=== PATIENT | male | born 1955 | race Caucasian/White ===

== ENCOUNTER → 2021-05-27 07:26 | Outpatient (CLI) | payer MEDICARE, SELFPAY ==
--- NOTE | ~2021-05-27 | XR_ITS ---
XR knee LT 3V 05/27/2021 08:04 Indication: Left knee pain Procedure: 3 views left knee Comparison: No prior studies for comparison. Findings: There is severe osteoarthritis of the left knee. No fracture, subluxation or dislocation. S mall joint effusion. No foreign bodies. Impression: 1: Severe osteoarthritis of the left knee, most advanced medially. Reviewed, dictated and finalized at location B. Impression: 1: Severe osteoarthritis of the left knee, most advanced medially.
== END ==
PROVIDERS: Visit Provider Orthopaedic Surgery
DX: M25.562 Pain in left knee (principal); M17.12 Unilateral primary osteoarthritis, left knee
CPT/HCPCS: 73562

== ENCOUNTER 2021-08-05 07:40 | Outpatient (CLI) | payer MEDICARE, SELFPAY ==
--- NOTE | 2021-08-05 08:37 | ECG_ITS ---
Measurements Intervals [place] Rate: 62 P: 31 DC: 181 QRS: -15 QRSD: 102 T: 42 QT: 403 QTc: 411 Interpretive Statements SINUS RHYTHM BASELINE ARTIFACT- I, II, III, AVR, AVL, AVF, V4-V6 NORMAL ECG Electronically Signed On 08-05-2021 9:58:21 WAITRESS by Hadley Hassan D.O.
[2021-08-05 09:23] LABS: Basophils Percent Auto 0.7 % (0.2-1.2); Eosinophils Absolute Auto 0.1 K/mm3 (0-0.3); Eosinophils Percent Auto 1.8 % (0-4.4); Hematocrit 40.4 % (42.0-52.0); Hemoglobin 13.5 g/dL (14.0-18.0); Immature Granulocyte Absolute 0.02 K/mm3 (0.00-0.031); Immature Granulocyte Percent A 0.4 % (0-0.5); Lymphocytes Absolute Auto 1.33 K/mm3 (0.9-3.2); Lymphocytes Percent Auto 24.4 % (18.3-44.2); Mean Corpuscular HGB Conc 33.4 g/dl (32-36); Mean Corpuscular Hemoglobin 30.1 pg (26-34); Mean Platelet Volume 9.4 fl (7.4-10.4); Monocytes Absolute Auto 0.6 K/mm3 (0.1-0.6); Monocytes Percent Auto 10.8 % (2.6-8.5); Neutrophils Absolute Auto 3.4 K/mm3 (1.3-6.7); Neutrophils Percent Auto 61.9 % (45.5-73.1); Platelet Count Result 226 k/mm3 (150-375); Red Blood Count 4.49 M/mm3 (4.6-6.20); Red Cell Distribution Width 13.2 % (11.5-14.5); White Blood Count 5.4 K/mm3 (4.5-10.0)
[2021-08-05 09:26] LABS: Urine Cotinine NEGATIVE
[2021-08-05 09:36] LABS: Estimated Glomerular Filt Rate > 60; Glucose 98 mg/dL (65-110)
[2021-08-05 10:14] LABS: Hemoglobin A1C 5.4 % (<5.7)
== END 2021-08-05 07:41 | disposition home or self-care (01) ==
LOC: ANHSURGERY 07:44
PROVIDERS: PCP Nurse Practitioner Adult Health; Visit Provider Orthopaedic Surgery
DX: Z01.818 Encounter for other preprocedural examination (principal); M17.12 Unilateral primary osteoarthritis, left knee; Z51.81 Encounter for therapeutic drug level monitoring; Z79.899 Other long term (current) drug therapy
CPT/HCPCS: 80307; 82040; 82565; 82947; 83036; 85025; 86850; 86900; 86901; 87081; 93005

== ENCOUNTER 2021-08-17 02:18 | Day surgery (SDC) | payer MEDICARE, SELFPAY ==
[2021-08-05 07:53] VITALS: BMI 30.5
--- NOTE | 2021-08-05 08:09 | PC.NURSE ---
Report to the Outpatient Waiting Room, entrance under the green pavilion located off [facility], at time __0900 on date _08/17/21 . OR Time: __11100 . - You and your visitor will be asked a series of questions to screen for COVID 19 for your protection. - A mask is required within the hospital. - Only one visitor is allowed at this time. Patient visitors will be guided where to wait when not with patient. Preoperative COVID Testing Requirements: No COVID Test needed if: (proof is required; if not received patient will have Rapid Test prior to entry) - Patient has received COVID Vaccine at least 14 days prior to procedure date or - Patient has positive COVID test result within last 90 days of surgery date. COVID Test needed if above criteria is not met If not COVID vaccinated a COVID test must be conducted within 72 hours of surgery and patient is asked to isolate self from time of testing until procedure. You will go to the [facility] for your COVID testing. The [facility] site is located at the corner of [address] [facility]. You will only be called if COVID results are positive and your surgeon may reschedule your elective surgery date. Patients may have clear liquids (water, carbonated beverages, clear teas, apple juice) until 3 hours prior to surgery with a maximum of 20 ounces. - No food from midnight until time of surgery - Infants may have breast milk until 4 hours before surgery, infant formula 6 hours prior to surgery. - Children will be allowed to drink immediately following surgery. If applicable, please bring a bottle or sippy cup to assist with drinking. Juice, water, soda, and popsicles are readily available. For infants on formula, please bring formula the day of surgery. Pacifiers are allowed. Take the following medications with a SIP of water the morning of surgery: ___NONE Medications to discontinue per physician ___MULTI VITAMIN 3 DAYS PRE OP Date to take last dose 08/13/21 Please no make-up, nail northern ir[place], hairspray, perfume, deodorant, or body powder the day of surgery. No jewelry (including any body piercings) or valuables the day of surgery, leave them at home. Please take a shower or bath the night before, or the morning of, surgery with an antibacterial soap. Wear comfortable, loose fitting clothing. Children are encouraged to wear pajamas. - Jewelry must be removed prior to entering the operating room. Rings and piercings that are not removed may be cut off. - The hospital will not accept responsibility for valuables. - Please leave all valuables, including medications, at home the day of surgery. If you are going home after surgery, a licensed electric pile driver operator must drive you home. - NO public transportation without another adult. - We recommend that an adult stay with you for 24 hours following discharge. - We also recommend that you do not drive, make important decision, drink alcoholic beverages, or take any drugs that were not prescribed by your health care provider for at least 24 hours after your discharge time. For Pediatric surgeries, we recommend two adults accompany the child home (only one inside the building at this time). Follow any additional instructions given to you from your surgeon. VERBAL instructions given to __PATIENT and asked if any additional questions and then verbalized understanding. Patient advised to call surgeon office or pre surgery nurse liaison [phone] if any additional questions.
[2021-08-05 08:28] VITALS: BP 152/92; PULSE 63; RESP 16; TEMP 36.8; O2SAT 98
--- NOTE | 2021-08-14 12:04 | P.PNAN_ITS ---
Anes - Initial Pre Proc Eval Procedure: Operation Date: 08/17/21 07:30 Proposed Procedures p Left Total Knee Arthroplasty - Law Stone MD Date/Time: 08/17/21 06:30 Surgeon: Law Stone MD Pre Op Diagnosis: Osteoarthritis Left Knee Patient Data Age: 65 Gender: M Height: 1.88 m Weight: 108 kg Last Vital Signs Temp 36.8 C 08/05/21 08:28 Pulse 63 08/05/21 08:28 Resp 16 08/05/21 08:28 BP 152/92 H 08/05/21 08:28 Pulse Ox 98 08/05/21 08:28 Allergies Allergy/AdvReac Type Severity Reaction Status Date / Time No Known Allergies Allergy Verified 08/06/21 09:53 Home Medications Medication Instructions Recorded Confirmed Type lisinopril 10 mg tablet 10 mg PO HS 05/27/21 08/06/21 History rivaroxaban 10 mg tablet 10 mg PO DAILY #14 tablet 08/06/21 Rx Patient hx anesthesia problems: none Family hx anesthesia problems: none Results Review: All pre-operative results and documents have been reviewed as pa rt of the pre-operative evaluation. [facility] Past Medical History Medical History (Updated 08/14/21 @ 12:05 by Arnold Joseph DO) HTN (hypertension) Malignant neoplasm of prostate Osteoarthritis of left knee Family History Family History Sibling Lymphoma Malignant neoplasm of prostate Social History Social History Smoking packs per day: 1 Smoking cigarettes per day: 20.0 Years smoked: 1 Smoking pack-years: 1.00 Smoking status: Former smoker Tobacco type: cigarettes Additional smoking assessment comments: smoked lightly for less than one year in his younger years Alcohol intake: never Living arrangements: with family Gender identity (if verbalized by the patient): Male Spiritual care concerns: No Anes - Eval Final PreProcedure Day of Procedure 08/14/21 12:04 Patient weight: obese Heart: regular rate and rhythm Lungs: clear to auscultation and normal air movement Airway: Mallampati scale class II Neurological: alert and oriented Last oral intake: >/= 8 hours ASA classification: III Emergent: no Anesthetic plan: proceed Anesthesia type and monitoring: regional spinal and standard monitoring Results Review: All pre-operative results and documents have been reviewed as part of the pre-operative evaluation. Informed Consent: The patient's anesthetic plan and its attendant risks and benefits were discussed with the patient/family/POA. Questions were solicited and answers provided to the satisfaction of the patient/family/POA.
--- NOTE | 2021-08-14 12:06 | WPDANESPNB ---
Anes - Peripheral Nerve Block Date/Time: 08/17/21 - 06:30 I have discussed with the patient/family/POA the placement of a peripheral nerve block for post-operative pain management, including associated risks, benefits, complications, and side effects. Alternative methods of post-operative analgesia were detailed. Questions were solicited and answers provided to the satisfaction of the patient/family/POA. Time-Out: A pre-procedural Time-Out was completed immediately before starting the procedure and confirmed: Patient Identification, Site, Procedure, Patient Position and the Availability of Requisite Equipment. Clinical Indications: Acute post-operative pain management requested by the operative surgeon. Nerve Block Insertion Note Anes-nerve block: adductor canal left Patient position: supine Skin prep: chlorhexidine Needle: 22 gauge, stimulating, insulated echogenic needle. Needle length: 80 mm Technique: ultrasound Injectate: bupivacaine 0.5% with epi 5 mcg/ml (30cc - no epi) Observations: tolerated well Complications: none Procedure start time:: 719 Procedure end time:: 723
[2021-08-17] VITALS (14 sets, daily range): BP systolic 122–182; BP diastolic 68–98; PULSE 61–77; RESP 10–18; TEMP 36.2–36.8; O2SAT 93–100; BMI 29.6
--- NOTE | ~2021-08-17 | XR_ITS ---
EXAMINATION: XR knee LT 2V DATE: 08/17/2021 10:19 INDICATION: Left knee arthroplasty. Postop. TECHNIQUE: 2 views of left knee were obtained. COMPARISON: Left knee radiographs 05/27/2021 FINDINGS: There is a total left knee arthroplasty with patellar resurfacing in near-anatomic alignmen t. No fracture. There is gas in the knee joint and soft tissues, consistent with recent surgery. IMPRESSION: 1. Total left knee arthroplasty in near-anatomic alignment. Reviewed, dictated and finalized at location B. ERECTOR
[2021-08-17] MEDS: LACTATED RINGERS 1,000 ML 30 ML IV CONT ×3 (06:30→11:20)
[2021-08-17] MEDS: ACETAMINOPHEN 500 MG TABLET 1000 MG PO ×3 (06:32→22:14)
[2021-08-17] MEDS: TRANEXAMIC ACID 1,000MG/ISO100 1,000 MG/100 ML BAG 200 MG IVPB (06:44)
--- NOTE | 2021-08-17 07:04 | WPDHPUPDATE1 ---
History and Physical Update Update Date/Time: 08/17/21 07:04 History and Physical has been reviewed, including an updated exam of the patient. There are NO changes in the patient's condition. Risks, benefits, and alternatives have been discussed and questions answered. Patient agrees to proceed with procedure.
[2021-08-17] MEDS: ceFAZolin 2 GM/D5W 50 ML 2 GM/50 ML BAG IVPB ×3 (07:27→23:19)
[2021-08-17] MEDS: GENTAMICIN BONE CEMENT REFOBACIN 1 EACH TOPICAL (08:17)
[2021-08-17] MEDS: ceFAZolin SODIUM 1 GM VIAL IV PUSH (09:13)
--- NOTE | 2021-08-17 10:05 | P.OP_ITS ---
Procedure Note - Detailed Date of Procedure 08/17/21 Pre-op Diagnosis Osteoarthritis Left Knee Post-op Diagnosis same Procedure Performed Left total knee replacement Surgeon Law Stone MD Freight Elevator Erector Heena Valente Anesthesia general and regional Description of Procedure The patient was identified and proper site identified. In the preop holding area the anesthesia team performed a left leg sub sartorial block after which the patient was taken to the operating room and transferred to the OR table positioning supine taking care to pad the torso and extremities. After general anesthetic induction and intubation a nonsterile tourniquet was placed high on the left thigh. The left lower extremity was prepped and draped in the usual sterile fashion. The extremity was exsanguinated and with the knee flexed tourniquet was inflated to 300 mmHg remaining up for approximately 65 minutes. An anterior midline incision was made and a modified medial parapatellar approach was used. Infra and suprapatellar fat pads were excised. Patella was resected leaving 16 mm thickness and prepared for the size 37 standard round three peg component. Using the intramedullary guide the distal femur was cut in the proper orientation for the size 75 femoral component. Using the extram edullary guide the tibia was cut perpendicular to the long axis protecting collateral ligaments and popliteal structures. It was sized to a 83. Flexion and extension gaps were balanced. Trial reduction was undertaken and the weight-bearing line was noted to passed through the center of the joint. Proximal tibia was drilled and punched in the proper orientation for the real component. Trial components were removed. The bone surfaces were washed with pulsatile lavage and dried. The real components were cemented simultaneously. The knee was held in extension and the patella held clamped until the cement had cured. Excess cement was removed from the joint. After trialing it was determined that the 16 mm insert gave full range of motion from 0-120 degrees of flexion and the patella tracked in the femoral groove with no lift-off. After final lavage the joint the real 16 E poly insert was placed and secured with a locking bar. A Betadine and saline wash was placed into the wound and allowed to sit for approximately 3 minutes and then evacuated. Periarticular tissues were infiltrated with 60 cc of the arthroplasty solution. Surgicel powder was used both deep and superficial to the fascia during the closure. The extensor mechanism was repaired with #2 Vicryl suture and 0 looped PDS suture. Subcu was reapproximated with 3-0 Monocryl and 2-0 Quill with tissue adhesive for the skin. A sterile dressing was applied. He tolerated the procedure well, was awakened and extubated, transferred to the bed and was taken to recovery area in stable condition. There were no known intraoperative complications. Perioperative antibiotics were administered. Estimated Blood Loss 100 Tourniquet Time 65 Drains No Packing No Pathology none sent Complications No immediate complications Condition stable Disposition PACU
[2021-08-17] MEDS: fentaNYL CITRATE INJ (*CRX) 100 MCG/2 ML VIAL 25 MCG IV PUSH ×8 (10:17→11:10)
[2021-08-17] MEDS: HYDROmorphone HCL INJ (*CRX) 1 MG/ML SYR 0.5 MG IV PUSH ×4 (11:17→11:59)
--- NOTE | 2021-08-17 12:27 | PC.NURSE ---
This patient, Robb Irwin, was admitted to [facility] Surgery-1. Patient/family oriented to hospital policies and general routines including ID bracelet, bed and alarms, visiting hours, pain management, procedures, bathroom and other care routines, personal items, smoking policy, room service/diet, and visiting hours. Information on how to activate the Rapid Response Team has been discussed. Patient/Family are encouraged to report perceived risks to care and to ask questions if they do not understand what they are told or what they should do.
[2021-08-17] MEDS: KETOROLAC 15 MG/ML VIAL (*BKC) IV PUSH ×3 (12:59→23:46)
[2021-08-17] MEDS: oxyCODONE HCL (*CRX) 5 MG TAB IR PO ×3 (13:00→20:40)
[2021-08-17] MEDS: ONDANSETRON INJ 4 MG/2 ML VIAL IV PUSH (13:16)
[2021-08-17] MEDS: SODIUM CHLORIDE 0.9% IV 1,000 ML 125 ML IV CONT (13:24)
[2021-08-17] MEDS: SENNA/DOCUSATE SODIUM TABLET 2 TAB PO (17:11)
[2021-08-17] MEDS: lisinopriL 10 MG TABLET PO (20:38)
[2021-08-18] MEDS: oxyCODONE HCL (*CRX) 5 MG TAB IR PO ×4 (01:02→12:09)
[2021-08-18 05:00] LABS: Basophils Percent Auto 0.3 % (0.2-1.2); Eosinophils Percent Auto 0.3 % (0-4.4); Hematocrit 34.4 % (42.0-52.0); Hemoglobin 11.2 g/dL (14.0-18.0); Immature Granulocyte Absolute 0.04 K/mm3 (0.00-0.031); Immature Granulocyte Percent A 0.4 % (0-0.5); Lymphocytes Absolute Auto 1.41 K/mm3 (0.9-3.2); Lymphocytes Percent Auto 12.9 % (18.3-44.2); Mean Corpuscular HGB Conc 32.6 g/dl (32-36); Mean Corpuscular Hemoglobin 29.6 pg (26-34); Mean Platelet Volume 9.6 fl (7.4-10.4); Monocytes Absolute Auto 1.1 K/mm3 (0.1-0.6); Monocytes Percent Auto 10.2 % (2.6-8.5); Neutrophils Absolute Auto 8.3 K/mm3 (1.3-6.7); Neutrophils Percent Auto 75.9 % (45.5-73.1); Platelet Count Result 190 k/mm3 (150-375); Red Blood Count 3.78 M/mm3 (4.6-6.20); Red Cell Distribution Width 13.3 % (11.5-14.5); White Blood Count 10.9 K/mm3 (4.5-10.0)
[2021-08-18 05:18] LABS: Chloride 102 mmol/L (98-107)
[2021-08-18 05:28] LABS: Anion Gap 6 mmol/L (8-16); Blood Urea Nitrogen 17 mg/dL (9-20); Calcium 8.6 mg/dL (8.4-10.2); Carbon Dioxide 30 mmol/L (22-30); Estimated CRCL calculation 75 ml/min; Estimated Glomerular Filt Rate > 60; Glucose 104 mg/dL (65-110); Potassium 4.3 mmol/L (3.4-5.0); Sodium 138 mmol/L (137-145)
[2021-08-18 05:46] VITALS: BP 118/66; PULSE 64; RESP 12; O2SAT 98
[2021-08-18] MEDS: ACETAMINOPHEN 500 MG TABLET 1000 MG PO (05:47)
[2021-08-18] MEDS: KETOROLAC 15 MG/ML VIAL (*BKC) IV PUSH (05:48)
[2021-08-18] MEDS: ceFAZolin 2 GM/D5W 50 ML 2 GM/50 ML BAG IVPB (06:39)
--- NOTE | 2021-08-18 07:15 | P.PNAN_ITS ---
Anes - Prog Note Post-Op Date/Time: 08/18/21 07:15 Cardiovascular status: normal Respiratory status: normal Airway patency: baseline Mental status: baseline Post-Op hydration status: normal Vital Signs: Last Vital Signs Temp 98.3 F 08/17/21 21:40 Pulse 65 08/17/21 21:40 Resp 15 08/17/21 21:40 BP 143/77 H 08/17/21 21:40 Pulse Ox 96 08/17/21 21:40 Pain Score (VAS): 0-1 I/O: Intake & Output 08/17/21 08/17/21 08/18/21 15:59 23:59 07:59 Intake Total 2050 1570 50 Output Total 300 Balance 1750 1570 50 Laboratory Tests 08/18/21 04:23 08/18/21 04:23 08/18/21 08/18/21 04:23 04:23 WBC 10.9 H RBC 3.78 L Hgb 11.2 L Hct 34.4 L MCV 91.0 MCH 29.6 MCHC 32.6 RDW 13.3 Plt Count 190 MPV 9.6 Immature Gran % (Auto) 0.4 Neut % (Auto) 75.9 H Lymph % (Auto) 12.9 L Pershing % (Auto) 10.2 H Eos % (Auto) 0.3 Baso % (Auto) 0.3 Lymph # (Auto) 1.41 Pershing # (Auto) 1.1 H Eos # (Auto) 0.0 Baso # (Auto) 0.0 Abs Immat Gran (auto) 0.04 H Absolute Neuts (auto) 8.3 H Absolute Nucleated RBC 0.0 Nucleated RBC % 0.0 Sodium 138 Potassium 4.3 Chloride 102 Carbon Dioxide 30 Anion Gap 6 L BUN 17 Creatinine 1.00 Estim Creat Clear Calc 75 Estimated GFR > 60 Glucose 104 Calcium 8.6 Post-procedural complaints: none Patient Feedback: Patient satisfied with anesthetic care.
[2021-08-18 07:45] VITALS: BP 129/64; PULSE 64; RESP 16; TEMP 37.1; O2SAT 98
--- NOTE | 2021-08-18 08:06 | PM.DS ---
DS: Admitting Diagnosis Discharge Date August 18, 2021 Admitting Diagnosis Left knee osteoarthritis DS: Discharge Diagnosis Discharge Diagnosis (1) Status post total left knee replacement: Code(s): Z96.652 - Presence of left artificial knee joint Status: Resolved Assessment and Plan: 65-year-old male postop day 1 after left total knee replacement. Overall doing well and having no side effects to pain medication. He did get nauseated during his therapy session yesterday but we will attempt this again today prior to discharge. He is able to ambulate with walker to and from the bathroom. Plan is to discharge home today, he will start therapy in 1 week, and follow up in our office in 2 weeks. DS: Summary Hospital Course Reason for hospitalization: Observation after left total knee replacement Hospital Course: 65-year-old male admitted for observation after left total knee replacement. He is tolerating the pain medication that he has been given and he will attempt to have therapy today. No issues or concerns and medications at time of discharge were explained to patient. Plan is to discharge home today and he will call the office with any further concerns or questions. Status at Discharge Functional status at discharge: uses cane/walker Overall status at discharge: patient is progressing back to baseline Time Spent with Patient Time attestation: Total time spent providing and/or coordinating discharge services: Time spent: Less than 30 minutes Exam Const: General: comfortable and no acute distress Orientation/consciousness: patient oriented x3 HENMT: Head: normocephalic Ears: hearing grossly normal bilaterally Face and sinus: face symmetric Mouth: Yes moist mucous membranes Eyes: General: appearance normal, both eyes and all related structures Resp: Effort & Inspection: normal respiratory effort GI: Inspection: non-distended GI Palp: No Tenderness to palpation present (GI) Skin: General skin exam: normal color Neuro: Sensory Exam: normal sensation Extrem: Other: Exam of the left knee shows a dry dressing over surgical wound following left total knee replacement. Calves negative. Neurovascular status unremarkable. Psych: Mental Status: mental status grossly normal DS: Data Data Completed and Pending Labs on day of discharge: Labs from last 24 hours 08/18/21 08/18/21 04:23 04:23 WBC 10.9 H RBC 3.78 L Hgb 11.2 L Hct 34.4 L MCV 91.0 MCH 29.6 MCHC 32.6 RDW 13.3 Plt Count 190 MPV 9.6 Immature Gran % (Auto) 0.4 Neut % (Auto) 75.9 H Lymph % (Auto) 12.9 L Rabun % (Auto) 10.2 H Eos % (Auto) 0.3 Baso % (Auto) 0.3 Lymph # (Auto) 1.41 Rabun # (Auto) 1.1 H Eos # (Auto) 0.0 Baso # (Auto) 0.0 Abs Immat Gran (auto) 0.04 H Absolute Neuts (auto) 8.3 H Absolute Nucleated RBC 0.0 Nucleated RBC % 0.0 Sodium 138 Potassium 4.3 Chloride 102 Carbon Dioxide 30 Anion Gap 6 L BUN 17 Creatinine 1.00 Estim Creat Clear Calc 75 Estimated GFR > 60 Glucose 104 Calcium 8.6 Discharge Plan Discharge Patient Disposition: Home, Self-Care Discharge Instructions: 3 times daily for 20 minutes each time, reclining in bed with ice packs over the incision and a pillow underneath the calf of the affected leg, not under the knee. Your wound is glued so it is okay to get into the shower and get the wound wet in two days. Be sure to read through all the information that came from a my office and the hospital. Most of the answers you will need can be found that material. Call the office with any questions that you cannot find answers to, or concerns you may have. After the Xarelto is completed, start taking one coated 325 mg aspirin daily and do this for four more weeks. Please call [facility] at as soon as possible to verify your follow-up appointment to be seen in 2 weeks. Also, call the office with any orthop
[2021-08-18] MEDS: SENNA/DOCUSATE SODIUM TABLET 2 TAB PO (08:28)
[2021-08-18] MEDS: polyethylene glycoL 3350 17 GM POWD.PACK PO (08:28)
[2021-08-18] MEDS: RIVAROXABAN 10 MG TABLET PO (08:29)
== END 2021-08-18 12:35 | disposition home or self-care (01) ==
LOC: ANHSURGERY 10:01 → ANHSUROVER 12:14
PROVIDERS: PCP Nurse Practitioner Adult Health; Visit Provider Orthopaedic Surgery
PROC: (CPT 27447; principal; 2021-08-17 07:30)
DX: M17.12 Unilateral primary osteoarthritis, left knee (principal); G89.18 Other acute postprocedural pain; R11.0 Nausea; I10 Essential (primary) hypertension; Z85.46 Personal history of malignant neoplasm of prostate; Z79.01 Long term (current) use of anticoagulants; Z87.891 Personal history of nicotine dependence; E66.9 Obesity, unspecified; Z68.29 Body mass index [BMI] 29.0-29.9, adult
CPT/HCPCS: 27447; 64447; 36415; 73560; 80048; 80307; 82040; 82565; 82947; 83036; 85025; 86850; 86900; 86901; 87081; 93005; 97110; 97116; 97161; 97165; 97530; 97535; A9270; C1713; C1776; J0171; J0690; J1040; J1100; J1170; J1885; J2250; J2270; J2370; J2405; J2704; J2795; J3010; J7030; J7120

== ENCOUNTER 2023-11-07 10:04 | Outpatient (CLI) | payer MEDICARE, SELFPAY ==
[2023-11-07 18:36] LABS: Hematocrit 43.2 % (42.0-52.0); Hemoglobin 13.9 g/dL (14.0-18.0); Mean Corpuscular HGB Conc 32.2 g/dl (32-36); Mean Corpuscular Hemoglobin 29.3 pg (26-34); Mean Corpuscular Volume 90.9 fl (80-100); Platelet Count Result 260 k/mm3 (150-375); Red Blood Count 4.75 M/mm3 (4.6-6.20); Red Cell Distribution Width 13.2 % (11.5-14.5); White Blood Count 6.3 K/mm3 (4.5-10.0)
[2023-11-07 18:37] LABS: LDL Cholesterol Direct 185 mg/dL
[2023-11-07 18:55] LABS: Alanine Aminotransferase 21 U/L (6-50); Albumin Level 4.3 g/dL (3.5-5.1); Alkaline Phosphatase 63 U/L (38-126); Anion Gap 5 mmol/L (4-12); Aspartate Amino Transferase 54 U/L (17-59); Bilirubin,Total 0.5 mg/dL (0.2-1.3); Blood Urea Nitrogen 25 mg/dL (9-20); Calcium 9.5 mg/dL (8.4-10.2); Carbon Dioxide 28 mmol/L (22-30); Chloride 105 mmol/L (98-107); Cholesterol 270 mg/dL (0-200); Estimated Glomerular Filt Rate > 60; Glucose 93 mg/dL (65-110); HDL Direct 43 mg/dL; Potassium 4.2 mmol/L (3.4-5.0); Sodium 138 mmol/L (137-145); Triglycerides 91 mg/dL (<150)
[2023-11-07 18:56] LABS: Prostate Specific Antigen 0.7 ng/mL (< OR = 4.0)
== END 2023-11-07 10:05 | disposition home or self-care (01) ==
LOC: ANHBWCLAB 10:10
PROVIDERS: PCP Nurse Practitioner Adult Health; Visit Provider Nurse Practitioner Adult Health
DX: C61 Malignant neoplasm of prostate (principal); I10 Essential (primary) hypertension; Z12.5 Encounter for screening for malignant neoplasm of prostate
CPT/HCPCS: 36415; 80053; 80061; 84153; 85027; G0103

== ENCOUNTER 2024-05-24 09:21 | Outpatient (CLI) | payer MEDICARE, SELFPAY ==
[2024-05-24 19:38] LABS: Alanine Aminotransferase 25 U/L (6-50); Albumin Level 4.2 g/dL (3.5-5.1); Alkaline Phosphatase 75 U/L (38-126); Anion Gap 6 mmol/L (4-12); Aspartate Amino Transferase 52 U/L (17-59); Bilirubin,Total 0.5 mg/dL (0.2-1.3); Blood Urea Nitrogen 16 mg/dL (9-20); Calcium 9.7 mg/dL (8.4-10.2); Carbon Dioxide 31 mmol/L (22-30); Chloride 102 mmol/L (98-107); Cholesterol 258 mg/dL (0-200); Estimated Glomerular Filt Rate > 60; Glucose 92 mg/dL (65-110); HDL Direct 44 mg/dL; Potassium 4.6 mmol/L (3.4-5.0); Sodium 139 mmol/L (137-145); Triglycerides 99 mg/dL (<150)
[2024-05-24 19:53] LABS: LDL Cholesterol Direct 169 mg/dL
== END 2024-05-24 09:22 | disposition home or self-care (01) ==
LOC: ANHBWCLAB 09:23
PROVIDERS: PCP Nurse Practitioner Adult Health; Visit Provider Nurse Practitioner Adult Health
DX: I10 Essential (primary) hypertension (principal)
CPT/HCPCS: 36415; 80053; 80061

== ENCOUNTER 2024-11-29 09:26 | Outpatient (CLI) | payer MEDICARE, SELFPAY ==
--- OUTSIDE RECORDS SUMMARY | 2024-11-29 10:18 | XMS_ITS | Clinical Summary ---
Author Organization [facility] Care Team Providers Care Bond Writer Name Role Phone Unavailable Primary Care Provider Unavailabl e Social History Tobacco Use Types Packs/Day Years Used Date Smoking Tobacco: Never Assessed Sex and Gender Information Value Date Recorded Sex Assigned at Not on file Legal Sex Male 7:30 AM CDT Gender Identity Not on file Sexual Orientation Not on file Plan of Treatment Health Maintenance Due Date Last Done Comments Hepatitis C Virus (HCV) Screening 1955 TdaP Immunization 1955 Colonoscopy 10/19/1999 Colorectal Cancer Screening 10/19/1999 Cologuard 2004 Immunochemical Fecal Occult Blood 2004 Pneumococcal Immunization (5 0+ years) (1 of 1 - PCV) 2004 Zoster Immunization (1 of 2) 2004 PSA Discussion 2009 Influenza Immunization (#1) 04/08/202404/08, 04/19/2019, 08/08/2013 SARS-COV-2 Immunization ( season) 2024 10/07/2020, 09/13/2020 Respiratory Syncytial Virus (RSV) Immunization (Adult) (1 - 1-dose 75+ series) 2029 Hepatitis B Immunization Aged Out No longer eligible based on patient's age to complete this topic Meningococcal Immunization (ACWY) Aged Out No longer eligible b ased on patient's age to complete this topic Rotavirus Immunization Aged Out No lo nger eligible based on patient's age to complete this topic
--- OUTSIDE RECORDS SUMMARY | 2024-11-29 10:18 | XMS_ITS | Clinical Summary ---
Author Organization [facility] Address [address] [place] [id number] Care Team Providers Care Custom Clothier Name Role Phone Patricia Lyman NP Primary Care Provider [phone] Allergies No known active allergies Medications No known medications Immunizations Immunization Administration Dates Next Due Tdap (Boostrix) 06/09/2024 Social History Tobacco Use Types Packs/Day Years Used Date Smoking Tobacco: Never Smokeless Tobacco: Never Tobacco Cessation:Counseling Given: Not Answered Sex and Gender Information Value Date Recorded Sex Assigned at Not on file Legal Sex Male 4:43 PM CDT Gender Identity Not on file Sexual Orientation Not on file Last Filed Vital Signs Vital Sign Reading Time Taken Comments Blood Pressure 172/80 06/09/2024 11:43 AM CDT Pulse 69 06/09/2024 11:43 AM CDT Temperature 36.1 C (97 F) 06/09/2024 11:43 AM CDT Respiratory Rate 18 06/09/2024 11:43 AM CDT Oxygen Saturation 99% 06/09/2024 11:43 AM CDT Inhaled Oxygen Concentration - - Weight 104.3 kg (230 lb) 06/09/2024 11:43 AM CDT Height 188 cm (6' 2 ) 06/09/2024 11:43 AM CDT Body Mass Index 29.53 06/09/2024 11:43 AM CDT Plan of Treatment Health Maintenance Due Date Last Done Comments Colorectal Cancer Screening Colonoscopy (10 Years) 1954 Hepatitis C 1972 Pneumococcal Vaccine: 50+ Years (1 of 1 - PCV) 2004 Zoster Vaccines (1 of 2) 2004 Annual Medicare Wellness Visit 10/19/2019 COVID-19 Vaccine ( season) 2024 08/03/2022, 11/18/2021, 06/09/2021, Additional history exists RSV Immunization or 60+ Years (1 - 1-dose 75+ series) 2029 DTaP, Tdap and Td Vaccines (3 - Td or Tdap) 06/09/2034 06/09/2024, 03/16/2022 Meningococcal B Vaccine Aged Out No l onger eligible based on patient's age to complete this topic Meningococcal Vaccine Aged Out No wolfgang soni eligible based on patient's age to complete this topic RSV Immunizations Under 20 Months Aged Out No longer eligible based on patient's age to complete this topic Insurance [employer]UM[employer] Care Teams Custom Clothier Relationship Specialty Start Date End Date Patricia Lyman NP [address] [place] [phone] PCP - General NURSE PRACTITIONER 10/24/20
--- OUTSIDE RECORDS SUMMARY | 2024-11-29 10:18 | XMS_ITS | Clinical Summary ---
Author Organization [facility] Address [address] [place] [place] [address] Phone Care Team Providers Care Experienced Truck Driver Name Role Phone Patricia Lyman Primary Care Provider [phone] Allergies No known active allergies Medications lisinopriL (PRINIVIL) 20 mg tablet Take 20 mg by mouth daily. 1 Active tamsulosin (FLOMAX) 0.4 mg capsule Take 0.4 mg by mouth daily. 1 Active ciprofloxacin HCl (CIPRO) 500 mg tabletIndicati ons:I do want both cipro and cefuroxime filled. Thanks. Take 1 Tablet (500 mg) by mouth 2 times daily. Start the night before the procedure as directed. 4 Tablet 1 Active cefUROXime axetil (CEFTIN) 500 mg tabletIndicati ons:I do want both cipro and cefuroxime filled. Thanks. Take 1 Tablet (500 mg) by mouth every 12 hours. Start the night before the procedure as directed. 4 Tablet 1 Active HYDROcodone-ac etaminophen (NORCO) 5-325 mg tabletIndicati ons:Prostate cancer (CMS/HCC) Take 1 Tablet by mouth every 6 hours as needed for Pain, Moderate or Pain, Severe. Max Daily Amount: 4 Tablets 5 Tablet 1 Active dexAMETHasone (DECADRON) 4 mg tablet Take 1 Tablet (4 mg) by mouth see administration instructions for 1 dose. Take 1 tablet 1 hour prior to radiation therapy 5 Tablet 1 Active Active Problems Problem Noted Date Diagnosed Date Prostate cancer 01/08/2021 Immunizations Immunization Administration Dates Next Due (SkyBridge)(12 YR UP) COVID-19 VACCINE - EMERGENCY USE AUTHORIZATION, MRNA, [id number](PF) 30 MCG/0.3 ML IM SUSP 10/07/2020,09/13/2020 Social History Tobacco Use Types Packs/Day Years Used Date Smoking Tobacco: Never Smokeless Tobacco: Never Alcohol Use Standard Drinks/Week Comments Yes 0 (1 standard drink = 0.6 oz pur e alcohol) rare Sex and Gender Information Value Date Recorded Sex Assigned at Not on file Legal Sex Male 12:01 PM CDT Gender Identity Not on file Sexual Orientation Not on file Occupation Industry Job Start Date Job End Date retired Not on file Not on file Not on file Last Filed Vital Signs Vital Sign Reading Time Taken Comments Blood Pressure 132/75 01/27/2021 9:24 AM CDT Pulse 60 01/27/2021 9:24 AM CDT Temperature 36.7 C (98 F) 01/27/2021 9:24 AM CDT Respiratory Rate 18 01/27/2021 9:24 AM CDT Oxygen Saturation 97% 01/27/2021 9:24 AM CDT Inhaled Oxygen Concentration - - Weight 104.6 kg (230 lb 11.2 oz) 01/27/2021 6:16 AM CDT Height 188 cm (6' 2 ) 01/27/2021 6:16 AM CDT Body Mass Index 29.62 01/27/2021 6:16 AM CDT Plan of Treatment Health Maintenance Due Date Last Done Comments DTAP/TDAP/TD VACCINES (1 - Tdap) 1973 COLORECTAL SCREENING 10/19/1999 Colorectal Cancer Screening 10/19/1999 FIT-DNA Q 3 years 10/19/1999 FIT/FOBT Q 1 year 10/19/1999 Flex Sig/CT Colonography Q 5 years 10/19/1999 PNEUMOCOCCAL VACCINE 50+ YEA RS (1 of 1 - PCV) 2004 ZOSTER VACCINE (1 of 2) 2004 INFLUENZA VACCINE (#1) 2024 0, 04/19/2019, 04/19/2019, Additional history exists COVID-19 Vaccine (2023-2 5 season) 2024 06/09/2021, 10/07/2020, 09/13/2020 RSV VACCINE (60+ or ) (1 - 1-dose 75+ series) 2029 Medical Devices Implanted Type Area Software Developer Intern Device Identifier Shelf Expiration Date Model / Serial / Lot Imp Janel 10ml So-2100 - [id number] Implanted:Qty : 1 on 01/27/2021 by Domenico Yanes MD at [facility] Other N/A: Prostate AUGMENIX [id number] 02/12/2022 SO-2100 / / [id number] Gold Sedd Markers Implanted:Qty : 1 on 01/27/2021 by Domenico Yanes MD at [facility] N/A: Prostate 10/05/2024 [id number] 17-1820 / / [id number] Insurance [employer] [facility] MCR Advance Directives For more information, please contact: [phone] * Full Code (Latest Code Status on File) Date Activated Date Inactivated Comments 01/27/2021 6:33 AM 01/27/2021 11:56 AM Care Teams Experienced Truck Driver Relationship Specialty Start Date End Date Patricia Lyman ANP [address] [address] PCP - General Nurse Practitioner Adult Health 01/08/21
[2024-11-29 19:49] LABS: Alanine Aminotransferase 30 U/L (6-50); Albumin Level 4.5 g/dL (3.5-5.1); Alkaline Phosphatase 81 U/L (38-126); Anion Gap 6 mmol/L (4-12); Aspartate Amino Transferase 79 U/L (17-59); Bilirubin,Total 0.6 mg/dL (0.2-1.3); Blood Urea Nitrogen 17 mg/dL (9-20); Calcium 9.4 mg/dL (8.4-10.2); Carbon Dioxide 29 mmol/L (22-30); Chloride 103 mmol/L (98-107); Cholesterol 303 mg/dL (0-200); Estimated Glomerular Filt Rate > 60; Glucose 99 mg/dL (65-110); HDL Direct 49 mg/dL; Potassium 4.8 mmol/L (3.4-5.0); Sodium 138 mmol/L (137-145); Triglycerides 87 mg/dL (<150)
[2024-11-29 20:01] LABS: LDL Cholesterol Direct 199 mg/dL
== END 2024-11-29 09:27 | disposition home or self-care (01) ==
PROVIDERS: PCP Nurse Practitioner Adult Health; Visit Provider Nurse Practitioner Adult Health
DX: I10 Essential (primary) hypertension (principal)
CPT/HCPCS: 36415; 80053; 80061

== ENCOUNTER 2025-06-06 09:35 | Outpatient (CLI) | payer MEDICARE, SELFPAY ==
--- OUTSIDE RECORDS SUMMARY | 2025-06-06 10:20 | XMS_ITS | Clinical Summary ---
Author Organization [facility] Address [address] [place] [address] Care Team Providers Care Animal Behaviorist Name Role Phone Patricia Lyman NP Primary Care Provider [phone] Allergies No known active allergies Medications No [...] 11:43 AM CDT Height 188 cm (6' 2) 06/09/2024 11:43 AM CDT Body Mass Index 29.53 06/09/2024 11:43 AM CDT Plan of Treatment Health Maintenance Due Date Last Done Comments Colorectal Cancer Screening Colonoscopy (10 Years) 1954 Hepatitis C 1972 Pneumococcal Vaccine: 50+ Years (1 of 1 - PCV) 2004 Zoster Vaccines (1 of 2) 2004 Annual Medicare Wellness Visit 10/19/2019 COVID-19 Vaccine ( season) 2025 08/03/2022, 11/18/2021, 06/09/2021, Additional history exists Influenza Adult (#1) 2025 08/03/2022, 04/24/2020, 04/22/2020, Additional history exists RSV Immunization or 60+ Years (1 - 1-dose 75+ series) 2029 DTaP, Tdap and Td Vaccines (3 - Td or Tdap) 06/09/2034 06/09/2024, 03/16/2022 Hepatitis A Vaccines Aged Out No long er eligible based on patient's age to complete this topic Meningococcal B Vaccine Aged Out No l onger eligible based on patient's age to complete this topic Meningococcal Vaccine Aged Out No wolfgang soni eligible based on patient's age to complete this topic RSV Immunizations Under 20 Months Aged Out No longer eligible based on patient's age to complete this topic [place] [address] [address] MEDICARE Care Teams Animal Behaviorist Relationship Specialty Start Date End Date Patricia Lyman NP [address] [place] [id number] PCP - General NURSE PRACTITIONER 10/24/20
--- OUTSIDE RECORDS SUMMARY | 2025-06-06 10:20 | XMS_ITS | Clinical Summary ---
Author Organization [facility] Care Team Providers Care Chief Operating Officer Name Role Phone Unavailable Primary Care Provider [...] Virus (HCV) Screening 1955 TdaP Immunization 1955 Cologuard 10/19/1999 Colonoscopy 10/19/1999 Colorectal Cancer Screening 10/19/1999 Immunochemical Fecal Occult Blood 10/19/1999 Pneumococcal Immunization (5 0+ years) (1 of 1 - PCV) 2004 Zoster Immunization (1 of 2) 2004 Influenza Immunization (#1) 04/08/202504/08, 04/19/2019, 08/08/2013 SARS-COV-2 Immunization ( season) 2025 10/07/2020, 09/13/2020 Respiratory Syncytial Virus (RSV) Immunization (Adult) (1 - 1-dose 75+ series) 2029 Hepatitis B Immunization Aged Out No longer eligible based on patient's age to complete this topic Human Papillomavirus (HPV) Immunization Aged Out No longer eligible b ased on patient's age to complete this topic Meningococcal Immunization (ACWY) Aged Out No longer eligible b ased on patient's age to complete this topic Rotavirus Immunization Aged Out No lo nger eligible based on patient's age to complete this topic
--- OUTSIDE RECORDS SUMMARY | 2025-06-06 10:20 | XMS_ITS | Clinical Summary ---
Author Organization [facility] Address [address] [place] [address] Phone Care Team Providers Care Gang Supervisor Pipe Lines Name Role Phone Patricia Lyman Primary Care Provider [phone] Allergies No known active allergies Medications lisinopriL [...] 01/08/2021 Immunizations Immunization Administration Dates Next Due (Biomeme)(12 YR UP) COVID-19 VACCINE - EMERGENCY USE AUTHORIZATION, MRNA, [id number](PF) 30 MCG/0.3 ML IM SUSP 10/07/2020,09/13/2020 Social [...] 6:16 AM CDT Height 188 cm (6' 2) 01/27/2021 6:16 AM CDT Body Mass Index [...] 2004 ZOSTER VACCINE (1 of 2) 2004 [place]) Preventative Visit/Annual Wellness Visit 08/08/2024 INFLUENZA VACCINE (#1) 2025 0, 04/19/2019, 04/19/2019, Additional history exists COVID-19 Vaccine (2024-2 6 season) 2025 06/09/2021, 10/07/2020, 09/13/2020 RSV VACCINE (60+ or ) (1 - 1-dose 75+ series) 2029 Medical Devices Implanted Type Area Party Chief Device Identifier Shelf Expiration Date Model / Serial / Lot Imp Spaceoar 10ml So-2100 - [id number] Implanted:Qty : 1 on 01/27/2021 by Domenico Yanes MD at [facility] Other N/A: Prostate AUGMENIX [id number] 02/12/2022 SO-210 / / [id number] Gold Sedd Markers Implanted:Qty : 1 on 01/27/2021 by Domenico Yanes MD at [facility] N/A: Prostate 10/05/2024 [id number] 17-1820 / / [id number] [place] [address] [place] [address] [facility] Address: [address] [address] Advance Directives For more information, please contact: [phone] * Full Code (Latest Code Status on File) Date Activated Date Inactivated Comments 01/27/2021 6:33 AM 01/27/2021 11:56 AM Care Teams Gang Supervisor Pipe Lines Relationship Specialty Start Date End Date Patricia Lyman ANP [address] [phone] PCP - General Nurse Practitioner Adult Health 01/08/21
[2025-06-06 19:24] LABS: Alanine Aminotransferase 29 U/L (6-50); Albumin Level 4.3 g/dL (3.5-5.1); Alkaline Phosphatase 73 U/L (38-126); Anion Gap 8 mmol/L (4-12); Aspartate Amino Transferase 81 U/L (17-59); Bilirubin,Total 0.4 mg/dL (0.2-1.3); Blood Urea Nitrogen 18 mg/dL (9-20); Calcium 9.7 mg/dL (8.4-10.2); Carbon Dioxide 27 mmol/L (22-30); Chloride 103 mmol/L (98-107); Cholesterol 289 mg/dL (0-200); Estimated Glomerular Filt Rate > 60; Glucose 97 mg/dL (65-110); HDL Direct 44 mg/dL; Potassium 4.2 mmol/L (3.4-5.0); Sodium 138 mmol/L (137-145); Total Protein 7.6 g/dL (6.3-8.2); Triglycerides 87 mg/dL (<150)
== END 2025-06-06 09:36 | disposition home or self-care (01) ==
LOC: ANHBWCLAB 09:36
PROVIDERS: PCP Nurse Practitioner Adult Health; Visit Provider Nurse Practitioner Adult Health
DX: I10 Essential (primary) hypertension (principal)
CPT/HCPCS: 36415; 80053; 80061